=== PATIENT | male | born 1950 | race Caucasian/White ===

== ENCOUNTER 2016-12-07 08:48 | Emergency (ER) | payer BC ==
[2016-12-07 09:08] VITALS: BP 142/85; PULSE 100; RESP 18; TEMP 98.4; O2SAT 95
--- NOTE | 2016-12-07 09:27 | EDPHY ---
H & P Time Seen by Provider: 12/07/16 08:57 HPI/ROS: CHIEF COMPLAINT: Cough and cold symptoms HISTORY OF PRESENT ILLNESS: 66-year-old male who is been ill with a runny nose , nasal congestion, cough for 2 weeks. This morning he noticed some injection, redness, discharge from his right eye. At no point did he have any fever. No chest pain or shortness of breath. Cough is keeping him awake at night and is productive of thick yellow sputum. No abdominal pain, nausea, vomiting. No palpitations. No urinary complaints. No headache. No lightheadedness. No ear pain. REVIEW OF SYSTEMS: Aside from elements discussed in the HPI, a comprehensive 10-point review of systems was reviewed and is negative. PAST MEDICAL HISTORY: Rheumatic fever, prostate issues SOCIAL HISTORY: Nonsmoker. . VITAL SIGNS: see nurse's notes. GENERAL: Well-developed, well-nourished, in no acute distress. Frequent wet sounding cough. HEENT: Atraumatic Eyes: PERRL, EOMI, right conjunctivae are erythematous, injected, with mild exudate present. Ears: TM clear bilaterally. Nose: No discharge. Mouth: moist mucous membranes. Pharynx: Slight erythema erythema , no exudates, no swelling, no abscess. Uvula is midline. NECK: Supple, no adenopathy, no meningismus, no tenderness. Negative Kernig's and Brudzinski's. LUNGS: Coarse breath sounds bilaterally. Frequent cough. No wheezes. No rhonchi. No rales. CARDIAC: Regular rate and rhythm, no rubs, murmurs or gallops. ABDOMEN: Soft, nontender, bowel sounds normal. BACK: No CVA tenderness. EXTREMITIES: Normal, no edema, FROM. NEURO: Alert and oriented, grossly nonfocal. SKIN: Warm and dry, no rash. PSYCHIATRIC: Normal mentation, no agitation. Smoking Status: Never smoked Constitutional: Initial Vital Signs Temperature (C) 36.9 C 12/07/16 09:06 Heart Rate 100 12/07/16 09:06 Respiratory Rate 18 12/07/16 09:06 Blood Pressure 142/85 H 12/07/16 09:06 O2 Sat (%) 95 12/07/16 09:06 O2 Delivery Mode Room Air Allergies/Adverse Reactions: No Known Allergies Allergy (Unverified 03/23/16 08:32) Home Medications: Medication Instructions Recorded Advicor 750 mg-20 mg Tablet 05/09/13 AZITHROMYCIN [Z-PACK] 250 - 500 mg PO DAILY #6 tab 12/07/16 Albuterol [Proventil Inhaler HFA 1 - 2 puffs IH Q4H #1 mdi 12/07/16 (*)] Ofloxacin 0.3% [Ocuflox 0.3%] 1 - 2 drops OP QID #1 opht.btl 12/07/16 Medical Decision Making ED Course/Re-evaluation: 66-year-old male with a productive cough x2 weeks, clear lungs, and conjunctivitis. Patient was given a albuterol meter dose inhaler, prescription for azithromycin , and prescription for ofloxacin eyedrops. Differential Diagnosis: Differential diagnosis of the patient's symptom complex was considered including but not limited to viral upper respiratory infection, sinusitis, bacterial sinusitis, viral pharyngitis, strep pharyngitis, bronchitis, bronchospasm, and influenza. Differential diagnosis for the patient's cough was considered including but not limited to viral versus bacterial bronchitis, asthma, COPD, pulmonary emboli, upper respiratory infection, lower respiratory infection, and bronchospasm. Departure - Departure Disposition: Home, Routine, Self-Care Clinical Impression: Bronchitis Upper respiratory infection Qualifiers: URI type: unspecified URI Qualified Code(s): J06.9 - Acute upper respiratory infection, unspecified Conjunctivitis Qualifiers: Conjunctivitis type: acute Acute conjunctivitis type: unspecified Laterality: right Qualified Code(s): H10.31 - Unspecified acute conjunctivitis, right eye Condition: Good Instructions: Upper Respiratory Infection (ED), Acute Bronchitis (ED), Conjunctivitis (ED) Additional Instructions: 1. Please use the metered dose inhaler to help control your coughing and wheezing and shortness of breath. 2. You been given a prescription of azithromycin. Please begin taking this as directed. 3. Over the counter cold medications often contain both antihistamines and decongestants. If you have a runny nose, take an antihistamine. If you are congested, take a decongestant. 4. I recommend Flonase nasal spray for nasal congestion. 5. Please take the ofloxacin eyedrops as directed. This is for your conjunctivitis. 6. For sore throat, Tylenol, ibuprofen for the pain, throat loss injures and salt water gargles may also be helpful. Return to the emergency department or seek care urgently if you're symptoms are worsening despite the above treatment, if you develop shortness of breath, if you're unable to drink fluids secondary to throat pain or other issues, if you developed, vomiting, diarrhea, or other concerns. Referrals: Ayanna Sandhu [Primary Care Provider] - As per Instructions Prescriptions: Albuterol [Proventil Inhaler HFA (*)] 1 - 2 puffs IH Q4H #1 mdi AZITHROMYCIN [Z-PACK] 250 - 500 mg PO DAILY #6 tab Ofloxacin 0.3% [Ocuflox 0.3%] 1 - 2 drops OP QID #1 opht.btl
== END 2016-12-07 09:40 | disposition home or self-care (01) ==
LOC: CED 08:48
DX: J20.9 Acute bronchitis, unspecified (principal); J06.9 Acute upper respiratory infection, unspecified; H10.31 Unspecified acute conjunctivitis, right eye